=== PATIENT | female | born 1990 | race Caucasian/White ===

== ENCOUNTER → 2020-03-28 | Outpatient (REF) | payer OTHER ==
[2020-03-28 13:31] LABS: HEMATOCRIT 40.9 % (36.0-47.0); HEMOGLOBIN 13.8 g/dl (12.0-15.5); MEAN CORPUSCULAR HEMOGLOBIN 30.9 pg (27.0-33.0); MEAN CORPUSCULAR HGB CONC 33.7 g/dl (32.0-36.5); MEAN CORPUSCULAR VOLUME 91.7 fl (80.0-96.0); PLATELET COUNT, AUTOMATED 237 10^3/uL (150-450); RED BLOOD COUNT 4.46 10^6/uL (4.00-5.40); WHITE BLOOD COUNT 6.8 10^3/uL (4.0-10.0)
[2020-03-28 14:12] LABS: FREE T4 1.22 NG/DL (0.76-1.46); THYROID STIMULATING HORMONE 0.715 uIU/ML (0.358-3.740)
[2020-03-28 14:50] LABS: HEPATITIS C VIRUS ABY INDEX 0.1 INDEX (<0.8); HIV 1&2 SCREEN CENTAUR NEGATIVE (NEGATIVE)
== END ==
LOC: M PLALAB 10:10
PROVIDERS: ATTEND Advanced Practice Midwife
DX: Z34.91 Encounter for supervision of normal pregnancy, unspecified, first trimester (principal)

== ENCOUNTER → 2020-06-19 | Outpatient (CLI) | payer OTHER ==
--- NOTE | 2020-06-20 05:23 | REP ---
INDICATION: ANATOMY COMPARISON: None. TECHNIQUE: Transabdominal obstetrical ultrasound with color Doppler evaluation. FINDINGS: Examination demonstrates a single live intrauterine in transverse presentation. motion is identified by technologist. Placenta is noted anterior and grade 0 without evidence for placenta previa or abruption. Amniotic fluid volume is normal. Cervix measures 2.9 cm in length and appears closed.. Gestational age by LMP 21 weeks 5 days with LINDSEY 10/25/2020. Gestational age by current measurements 21 weeks 5 days with LINDSEY 10/25/2020. FHR equals 146 beats per minute. BPD: 5.3 cm 22 weeks 2 days HC: 19.4 cm 21 weeks 4 days AC: 16.7 cm 21 weeks 5 days FL: 3.7 cm 21 weeks 4 days HL: 3.4 cm 21 weeks 5 days HC/AC: 1.16 Estimated weight 443 grams (43rdpercentile). Anatomical assessment demonstrates normal structures including cranium, choroid plexus, cavum, cerebellum/posterior fossa, facial features, lungs, four-chamber heart/ventricular outflow tracts, diaphragm, stomach, cord insertion/three-vessel cord, kidneys/bladder, spine, and extremities. IMPRESSION: Single live intrauterine in transverse lie demonstrating appropriate estimated weight and growth. Anatomical assessment is complete and normal. <Electronically signed by Alhaji Lazo > 06/20/20 [id number]
== END ==
LOC: M WHC 07:59
PROVIDERS: ATTEND Advanced Practice Midwife
DX: Z34.92 Encounter for supervision of normal pregnancy, unspecified, second trimester (principal); Z3A.21 21 weeks gestation of pregnancy

== ENCOUNTER → 2020-07-11 | Outpatient (REF) | payer OTHER ==
[2020-07-11 17:26] LABS: ALBUMIN 3.2 GM/DL (3.2-5.2); ALT/SGPT 18 U/L (12-78); BILIRUBIN,DIRECT < 0.1 MG/DL (0.0-0.2); BILIRUBIN,TOTAL 0.3 MG/DL (0.2-1.0); TOTAL PROTEIN 6.6 GM/DL (6.4-8.2)
== END ==
LOC: M PLALAB 14:20
PROVIDERS: ATTEND Advanced Practice Midwife
DX: L29.9 Pruritus, unspecified (principal)

== ENCOUNTER → 2020-07-18 | Outpatient (REF) | payer OTHER ==
[2020-07-18 13:55] LABS: HEMATOCRIT 39.2 % (36.0-47.0); HEMOGLOBIN 12.9 g/dl (12.0-15.5); MEAN CORPUSCULAR HEMOGLOBIN 31.3 pg (27.0-33.0); MEAN CORPUSCULAR HGB CONC 32.9 g/dl (32.0-36.5); MEAN CORPUSCULAR VOLUME 95.1 fl (80.0-96.0); PLATELET COUNT, AUTOMATED 186 10^3/uL (150-450); RED BLOOD COUNT 4.12 10^6/uL (4.00-5.40); WHITE BLOOD COUNT 6.3 10^3/uL (4.0-10.0)
== END ==
LOC: M PLALAB 08:47
PROVIDERS: ATTEND Obstetrics & Gynecology
DX: Z34.92 Encounter for supervision of normal pregnancy, unspecified, second trimester (principal)

== ENCOUNTER → 2020-09-26 | Outpatient (REF) | payer OTHER ==
[~2020-09-26] MED LIST: DOK1CAP7 PO; IBUP80TA PO; PRENTAB53 PO
== END ==
LOC: M SFHCWAGY 13:24
PROVIDERS: ATTEND Obstetrics & Gynecology
DX: Z36.89 Encounter for other specified antenatal screening (principal)
CPT/HCPCS: 87081; 90471; 90715; G0463

== ENCOUNTER 2020-10-16 21:53 | Inpatient (IN) | payer OTHER ==
[2020-10-16] VITALS (8 sets, daily range): BP systolic 128–162; BP diastolic 60–91
[~2020-10-16] VITALS: Ht 170.2 cm; Wt 74.4 kg
[2020-10-16] MEDS ORDERED: PRENTAB53 PO ×2 (22:12)
[2020-10-16] MEDS ORDERED: FENTANYL 2MCG/ML ROPIVACAINE 0.2% IN 0.9% NACL 100ML IVBAG As Ordered ONE (22:58)
[2020-10-16] MEDS ORDERED: OXYTOCIN 30 UNITS IN 0.9% NaCl 500ML IV BAG (J2590) As Ordered ONE (22:59)
[2020-10-16 23:19] LABS: HEMATOCRIT 37.1 % (36.0-47.0); HEMOGLOBIN 12.2 g/dl (12.0-15.5); MEAN CORPUSCULAR HEMOGLOBIN 29.8 pg (27.0-33.0); MEAN CORPUSCULAR HGB CONC 32.9 g/dl (32.0-36.5); MEAN CORPUSCULAR VOLUME 90.5 fl (80.0-96.0); PLATELET COUNT, AUTOMATED 199 10^3/uL (150-450); WHITE BLOOD COUNT 9.8 10^3/uL (4.0-10.0)
[2020-10-16 23:26] LABS: ALT/SGPT 17 U/L (12-78); BILIRUBIN,TOTAL 0.3 MG/DL (0.2-1.0); CREATININE FOR GFR 0.58 MG/DL (0.55-1.30); GLOMERULAR FILTRATION RATE > 60.0 (>60); LDH LACTATE DEHYDROGENASE 222 U/L (84-246); URIC ACID 4.6 MG/DL (2.6-6.0)
[2020-10-16] MEDS ORDERED: LR 1,000 ML IV ONE (23:40)
[2020-10-16] MEDS ORDERED: FENTANYL/ROPIVACAINE/NACL BAG 100 ML EPIDURAL SCH (23:58)
[2020-10-16] MEDS ORDERED: NALOXONE INJ 0.4MG/1ML VIAL (J2310 PER 1MG) IV PRN (23:58)
[2020-10-16] MEDS ORDERED: EPIDURAL/PCA KEYS XX PRN (23:58)
[2020-10-16] MEDS ORDERED: ONDANSETRON 4MG/2ML VIAL IV PRN (23:58)
[2020-10-16] MEDS ORDERED: REFRIGERATOR IV KEYS XX PRN (23:58)
[2020-10-16] MEDS ORDERED: ePHEDrine SULFATE 25 MG/5 ML(5MG/ML) SYRINGE IV PRN (23:58)
[2020-10-16] MEDS ORDERED: diphenhydrAMINE 50MG/ML VIAL (J1200) IV PRN (23:58)
[2020-10-16] MEDS ORDERED: LACTATED RINGER'S 1000 ML IV PRN (23:58)
[2020-10-16] MEDS ORDERED: EPIDURAL COMMENT XX SCH (23:58)
[2020-10-17] VITALS (15 sets, daily range): BP systolic 105–145; BP diastolic 53–86
[2020-10-17] MEDS: LR 1,000 ML IV SCH ×2 (00:07→01:19)
--- NOTE | 2020-10-17 00:53 | HPEPDOC ---
Obstetrical History & Physical General Date of Admission October 16, 2020 at 22:33 History of Present Illness 29yo at 38w5d presents with c/o contractions. Denies vaginal bleeding, LOF or decrease movement. Chief Complaint: Contractions, term Information Provided By: Patient Age: 29 : 2 Livin Care Care: Good Care Dating Final EDC: October 25, 2020 Final EDC by: LMP Past Medical History Past Obstetrical History : Past Obstetrical History: Multigravida Date of Delivery: Feb 06, 2018 Type of Delivery: Spontaneous Vaginal Del. Sex of Infant: Female Complications: No DIRECTOR OF SALES History: No pertinent history Past Medical History Surgical History: Denies/None Family History Significant Family History: No pertinent family hx Social History Marital Status: Family situation: Spouse/partner home Psychosocial History: No pertinent psych hx * Smoker: non-smoker Alcohol: Denies Drugs: denies Allergies Coded Allergies: No Known Allergies (Unverified , 10/16/20) Medications Scheduled Vit,Calc76/Iron/Folic (Prenatabs Rx Tablet) 1 Each Tablet, 1 TAB PO DAILY Physical Examination Physical Examination GENERAL: Alert and oriented times three. BREAST: . ABDOMEN: Gravid and non-tender to touch. FETUS: Is vertex (VTX) by sterile vaginal examination (SVE), fetus is vertex (VTX) by Que. HEART RATE: Regular rate and rhythm. LUNGS: Clear to auscultation (CTA). Vital Signs/I&O Vital Signs Date Time Temp Pulse Resp B/P (MAP) Pulse Ox O2 Delivery O2 Flow Rate FiO2 10/16/20 22:19 98.1 17 Room Air 10/16/20 22:07 85 140/91 (107) Laboratory Data 24H LABS Laboratory Tests 2 10/16/20 22:35: Serology Scanned Report Hepatitis B Testing 10/16/20 22:40: Nucleated Red Blood Cells % (auto) 0.0, Glomerular Filtration Rate > 60.0, Uric Acid 4.6, Total Bilirubin 0.3, Aspartate Amino Transf (AST/SGOT) 21, Alanine Aminotransferase (ALT/SGPT) 17, Lactate Dehydrogenase 222 CBC/BMP Laboratory Tests 10/16/20 22:40 Pertinent Laboratoy Data Blood Type: O+ RBC Antibody Screen: Negative HIV: Negative Hepatitis B: Negative Hepatitis C: Negative Rapid Plasma Reagin: Nonreactive Rubella: Immune Chlamydia/Gonorrhea: Negative Group B Streptococcus: Negative Glucose Tolerance Test: 122 Anatomy Ultrasound Placenta Location: Anterior Normal Anatomy: Yes Placenta Previa: No Vaginal Examination Dilation: 7 cm Effacement: 90% Station: 0 Cervical Consistency: Soft Cervical Position: Anterior Presentation: Cephalic presentation Assessment Variability: Moderate Accelerations: Positive Tocometer Contractions: Yes Frequency: regular Assessment/Plan Assessment 29-year-old 2 para 1 at 38 weeks and 5 days in active labor Reassuring status Plan Admit and orient. Heat Seal Operator and consent. Group B Streptococcus (GBS) negative. Labs and intravenous (IV) per unit protocol. Counseled on Pitocin and induction of labor (IOL). Anticipate normal spontaneous delivery (). C-S as appropriate. PING SHRESTHA MD. October 17, 2020 00:53
[2020-10-17 01:52] LABS: CORD GAS ABE A -1.5; CORD GAS HCO3 A 24.7 MEQ/L; CORD GAS O2 SAT A 40.5 %; CORD GAS PCO2 A 47.4 mmHg; CORD GAS PH A 7.335 UNITS; CORD GAS PO2 A 18.4 mmHg; CORD GAS SBC A 21.9 MEQ/L; CORD GAS TCO2 A 26.2 MEQ/L
[2020-10-17 01:53] LABS: CORD GAS ABE V -1.9; CORD GAS HCO3 V 23.5 MEQ/L; CORD GAS O2 SAT V 66.6 %; CORD GAS PCO2 V 42.3 mmHg; CORD GAS PH V 7.362 UNITS; CORD GAS PO2 V 26.4 mmHg; CORD GAS SBC V 22.1 MEQ/L; CORD GAS TCO2 V 24.8 MEQ/L
[2020-10-17] MEDS ORDERED: DOCUSATE SODIUM 100MG CAPSULE PO PRN (02:15)
[2020-10-17] MEDS ORDERED: RHOGAM 300 MCG (1500 IU) INJ (J2790) IM SCH (02:15)
[2020-10-17] MEDS ORDERED: MEASLES,MUMPS,RUBELLA VACCINE INJ (MMR-II) (90707) SC SCH (02:15)
[2020-10-17] MEDS ORDERED: MOM 30ML SUSPENSION UDC PO PRN (02:15)
[2020-10-17] MEDS ORDERED: METHYLERGONOVINE MALEATE 0.2 MG TAB PO PRN (02:15)
[2020-10-17] MEDS ORDERED: ANUSOL HC CREAM 30GM TOP PRN (02:15)
[2020-10-17] MEDS ORDERED: ACETAMINOPHEN 500 MG TAB PO PRN (02:15)
[2020-10-17] MEDS ORDERED: IBUPROFEN 600MG TAB PO PRN (02:15)
[2020-10-17] MEDS ORDERED: DIBUCAINE 1% OINTMENT 30GM TOP PRN (02:15)
[2020-10-17] MEDS ORDERED: OXYTOCIN DRIP 30 UNITS in IV 1 EA IV SCH (02:15)
[2020-10-17] MEDS ORDERED: ACETAMINOPHEN TAB 650MG DOSE (2X325MG) PO PRN (02:15)
--- NOTE | 2020-10-17 02:18 | DNPDOC ---
[facility] Delivery Note Delivery Note DATE OF DELIVERY: 10/17/2020 TIME OF : 0145 GENDER: Female APGARS: 8 and 9. WEIGHT: 3410 g or 7 lbs. 8 oz. LACERATIONS: 1MLL ANESTHESIA: epidural ESTIMATED BLOOD LOSS: 200 ml COUNTS: 5 laparotomy sponges accounted for prior to after delivery. 3 sharps removed from delivery field. DELIVERY NOTE: On 10/18/2019 06/06/1945 Mrs. Piedra, 29yo G2, now P2 had a spontaneous vaginal delivery of a liveborn female infant Apgars. Head was delivered occiput anterior (OA). There was a tight nuchal cord which was surgically reduce, followed by delivery of the shoulders and corpus. Infant was handed to mom with a good cry. Cord was clamped times two and was cut by support person under my direction. Placenta was then drained and delivered grossly intact. A premixed bag of 500 mL of normal saline with 30 units of Pitocin was then bolused along with uterine massage until the uterus was firm. On inspection there was a 1MLL that was repaired with 3-0 Vicryl after infusion with 1% lidocaine. On reinspection, cervix, vagina, perineum was grossly intact and hemostatic. Mom and baby in recovery on stable condition. PING SHRESTHA MD. October 17, 2020 02:18
[2020-10-17] MEDS: PRENATAL VITAMINS CHEWABLE TABLET PO SCH (08:41)
[2020-10-17] MEDS: IBUPROFEN 800 MG TAB PO PRN ×2 (11:46→20:07)
[2020-10-18 05:50] VITALS: BP 110/60
--- NOTE | 2020-10-18 07:38 | IPNPDOC ---
Text Note Date of Service The patient was seen on 10/18/20. NOTE PP #1 Feels well. Adequate pain management. Voiding VSS, afebrile, normotensive Breasts soft Fundus firm, down 1 FB Lochia rubra light without odor Perineum intact PP #1 Routine care. Anticipate D/C in am VS,Fishbone, I+O VS, Fishbone, I+O Vital Signs Date Time Temp Pulse Resp B/P (MAP) Pulse Ox O2 Delivery O2 Flow Rate FiO2 10/18/20 05:50 97.8 55 16 110/60 (77) 98 10/17/20 18:00 Room Air Tracey Jules CNM October 18, 2020 07:38
[2020-10-18] MEDS: PRENATAL VITAMINS CHEWABLE TABLET PO SCH (09:23)
[2020-10-18] MEDS ORDERED: IBUP80TA PO (10:06)
[2020-10-18] MEDS ORDERED: DOK1CAP7 PO (10:06)
--- NOTE | 2020-10-18 10:53 | DS.PDOC ---
Discharge Summary General Date of Admission October 16, 2020 at 22:33 Date of Discharge October 18, 2020 Discharge Summary PROCEDURES PERFORMED DURING STAY: spontaneous vaginal delivery ADMITTING DIAGNOSES: 1. active labor at 38w5d DISCHARGE DIAGNOSES: 1. active labor at 38w5d, delivered COMPLICATIONS/CHIEF COMPLAINT: Labor Check. HISTORY OF PRESENT ILLNESS/HOSPITAL COURSE: Sari is a 29yo [id number] s/p uncomplicated after presenting in active labor. She has had a benign course and at time of discharge has normal vitals and exam. DISCHARGE MEDICATIONS: Please see below. ALLERGIES: Please see below. PHYSICAL EXAMINATION ON DISCHARGE: VITAL SIGNS: Please see below. GENERAL: WDWN, comfortable Abdomen: soft, NT, ND, fundus firm minimal lochia LABORATORY DATA: Please see below. ACTIVITY: As tolerated, vaginal rest and no heavy lifting 6 weeks DIET: regular DISCHARGE PLAN/INSTRUCTIONS: -Discharge to home today -Follow up for routine visit in 6 weeks -return precautions discussed DISCHARGE CONDITION: Stable TIME SPENT ON DISCHARGE: Greater than 20 minutes. Vital Signs/I&Os Vital Signs Date Time Temp Pulse Resp B/P (MAP) Pulse Ox O2 Delivery O2 Flow Rate FiO2 10/18/20 05:50 97.8 55 16 110/60 (77) 98 10/17/20 18:00 Room Air Discharge Medications Scheduled Vit,Calc76/Iron/Folic (Prenatabs Rx Tablet) 1 Each Tablet, 1 TAB PO DAILY, (Reported) Scheduled PRN Docusate Sodium (Dok) 100 Mg Capsule, 100 MG PO BIDP PRN for CONSTIPATION Ibuprofen (Ibuprofen) 800 Mg Tablet, 800 MG PO Q8HP PRN for PAIN LEVEL 6-10 Allergies Coded Allergies: No Known Allergies (Unverified , 10/16/20) Yudelka Marshall MD October 18, 2020 10:53
== END 2020-10-18 14:05 | disposition home or self-care (01) | DRG 807 ==
LOC: M LDO 21:53 → M LDI 22:33 → M OBS 10-17 04:49
PROVIDERS: ADMIT Obstetrics & Gynecology; ATTEND Obstetrics & Gynecology
PROC: 10E0XZZ Delivery of Products of Conception, External Approach (ICD-10-PCS; principal; 2020-10-17)
PROC: 0HQ9XZZ Repair Perineum Skin, External Approach (ICD-10-PCS; 2020-10-17)
DX: O70.0 First degree perineal laceration during delivery (principal); Z37.0 Single live birth; Z3A.38 38 weeks gestation of pregnancy; O69.1XX0 Labor and delivery complicated by cord around neck, with compression, not applicable or unspecified